=== PATIENT | male | born 1985 | race Caucasian/White ===

== ENCOUNTER 2017-08-25 20:40 | Emergency (ER) | payer SELFPAY ==
[~2017-08-25] VITALS: Ht 172.7 cm; Wt 100.0 kg
[2017-08-25] MEDS ORDERED: SODIUM CHLORIDE 0.9% 1,000 ML IV ONE (23:10)
[2017-08-25] MEDS ORDERED: ONDANSETRON HCL 4MG/2ML VIAL IV STA (23:10)
[2017-08-25] MEDS ORDERED: KETOROLAC 30MG/ML VIAL IV STA (23:10)
[2017-08-25 23:38] LABS: BASOPHILS % 0.4 % (0.0-2.0); EOSINOPHILS % 3.1 % (0.0-5.0); HEMATOCRIT. 41.5 % (42.0-52.0); HEMOGLOBIN. 14.1 g/dL (14.0-18.0); LYMPHOCYTES % 27.3 % (20.0-50.0); MEAN CORPUSCULAR HEMOGLOBIN 28.7 pg (28.0-32.0); MEAN CORPUSCULAR VOLUME 84.1 fL (80.0-94.0); MEAN PLATELET VOLUME 10.5 fl (7.4-10.4); MONOCYTES % 8.9 % (2.0-8.0); NEUTROPHILS % 60.3 % (40.0-76.0); PLATELET 235 x1000/uL (130-400); RED BLOOD CELL COUNT 4.94 mill/uL (4.7-6.1); RED CELL DISTRIBUTION WIDTH 14.2 % (11.6-14.6)
[2017-08-25 23:51] LABS: PROTHROMBIN TIME 10.4 sec (9.4-11.6)
[2017-08-25 23:52] LABS: CLARITY URINE CLEAR (CLEAR); COLOR URINE YELLOW (YELLOW); KETONES URINE TRACE (NEGATIVE); LEUKOCYTE ESTERASE URINE NEGATIVE (NEGATIVE); NITRITE URINE NEGATIVE (NEGATIVE); OCCULT BLOOD URINE NEGATIVE (NEGATIVE); PROTEIN URINE NEGATIVE (NEGATIVE); SPECIFIC GRAVITY URINE 1.032 (1.005-1.030); UROBILINOGEN URINE 0.2 E.U./dL (0.2-1.0)
[2017-08-25 23:55] LABS: CARBON DIOXIDE 28 mEq/L (21-32); CHLORIDE 105 mEq/L (98-107)
[2017-08-26 02:46] VITALS: BP 105/53
== END 2017-08-26 02:50 | disposition home or self-care (01) ==
LOC: ER 21:16
DX: H60.92 Unspecified otitis externa, left ear (principal); H60.10 Cellulitis of external ear, unspecified ear; I88.9 Nonspecific lymphadenitis, unspecified
CPT/HCPCS: 36415; 80053; 81003; 85025; 85610; 96361; 96374; 96375; 99284; J1885; J2405; J7030; Z7610

== ENCOUNTER 2019-10-14 19:56 | Emergency (ER) | payer SELFPAY ==
[~2019-10-14] VITALS: Ht 167.6 cm; Wt 71.0 kg
[2019-10-14] MEDS ORDERED: SODIUM CHLORIDE 0.9% 1,000 ML IV ONE (23:43)
[2019-10-15 00:44] LABS: CHLORIDE 105 mEq/L (98-107)
[2019-10-15 00:45] LABS: BETA HYDROXYBUTYRATE 0.2 mMol/L (0.0-0.3)
[2019-10-15 01:16] LABS: BASOPHILS % 0.6 % (0.0-2.0); EOSINOPHILS % 1.9 % (0.0-5.0); HEMATOCRIT. 41.6 % (42.0-52.0); HEMOGLOBIN. 14.5 g/dL (14.0-18.0); MEAN CORPUSCULAR HEMOGLOBIN 29.8 pg (28.0-32.0); MEAN CORPUSCULAR VOLUME 85.5 fL (80.0-94.0); MEAN PLATELET VOLUME 11.1 fl (7.4-10.4); MONOCYTES % 8.6 % (2.0-8.0); NEUTROPHILS % 58.9 % (40.0-76.0); RED CELL DISTRIBUTION WIDTH 13.8 % (11.6-14.6)
[2019-10-15 01:24] LABS: CLARITY URINE CLEAR (CLEAR); COLOR URINE YELLOW (YELLOW); KETONES URINE NEGATIVE (NEGATIVE); LEUKOCYTE ESTERASE URINE NEGATIVE (NEGATIVE); NITRITE URINE NEGATIVE (NEGATIVE); OCCULT BLOOD URINE NEGATIVE (NEGATIVE); PH URINE 7.5 (4.5-8.0); PROTEIN URINE NEGATIVE (NEGATIVE); SPECIFIC GRAVITY URINE 1.041 (1.005-1.030); UROBILINOGEN URINE 0.2 E.U./dL (0.2-1.0)
[2019-10-15 01:29] LABS: PLATELET 192 x1000/uL (130-400); RED BLOOD CELL COUNT 5.06 mill/uL (4.7-6.1)
[2019-10-15 04:24] VITALS: BP 135/80
== END 2019-10-15 04:24 | disposition home or self-care (01) ==
LOC: ER 19:56
DX: E11.65 Type 2 diabetes mellitus with hyperglycemia (principal); R07.89 Other chest pain; Z79.84 Long term (current) use of oral hypoglycemic drugs
CPT/HCPCS: 36415; 71045; 80053; 81003; 82010; 82962; 84484; 85025; 93005; 96360; 96361; 99285; J7030

== ENCOUNTER 2021-08-01 18:11 | Inpatient (IN) | payer OTHER ==
[2021-08-01] VITALS (13 sets, daily range): BP systolic 128–142; BP diastolic 76–106
[~2021-08-01] VITALS: Ht 167.6 cm; Wt 78.9 kg
[~2021-08-01 18:11] MED LIST: HEPARIN SODIUM 1,000 UNIT/1ML VIAL IV ONE; NICARDIPINE 100MCG/ML 10ML VIAL (CATH LAB) IV ONE; NITROGLYCERIN 50MCG/ML 10ML VIAL (CATH LAB) IV ONE; SODIUM CHL 0.45% + KCL 20MEQ/L 1,000 ML IV NR
[2021-08-01] MEDS ORDERED: ASPIRIN 325MG EC TABLET PO ONE (18:30)
[2021-08-01 18:43] LABS: BASOPHILS % 0.6 % (0.0-2.0); EOSINOPHILS % 1.4 % (0.0-5.0); HEMATOCRIT. 46.6 % (42.0-52.0); HEMOGLOBIN. 16.6 g/dL (14.0-18.0); LYMPHOCYTES % 25.2 % (20.0-50.0); MEAN CORPUSCULAR HEMOGLOBIN 30.5 pg (28.0-32.0); MEAN CORPUSCULAR VOLUME 85.6 fL (80.0-94.0); MEAN PLATELET VOLUME 10.8 fl (7.4-10.4); MONOCYTES % 7.7 % (2.0-8.0); NEUTROPHILS % 65.1 % (40.0-76.0); PLATELET 266 x1000/uL (130-400); RED BLOOD CELL COUNT 5.45 mill/uL (4.7-6.1); RED CELL DISTRIBUTION WIDTH 13.3 % (11.6-14.6)
[2021-08-01 18:57] LABS: INR 0.9; PARTIAL THROMBOPLASTIN TIME 28.3 sec (23.4-31.0); PROTHROMBIN TIME 9.9 sec (9.6-11.0)
[2021-08-01 19:23] LABS: CHLORIDE 103 mEq/L (98-107)
[2021-08-01] MEDS ORDERED: IOHEXOL-300 100 ML BOTTLE ONE (19:46)
[2021-08-01] MEDS ORDERED: LIDOCAINE HCL 1% 20ML VIAL (Pyxis) INJ ONE (19:46)
[2021-08-01] MEDS ORDERED: IODIXANOL 320MG/ML 100 ML BOTTLE IV ONE (19:46)
[2021-08-01] MEDS ORDERED: FENTANYL CITRATE/PF 50MCG/ML 2ML VIAL ONE (19:46)
[2021-08-01] MEDS ORDERED: MIDAZOLAM HCL 2 MG/2 ML VIAL ONE (19:47)
[2021-08-01] MEDS ORDERED: CLOPIDOGREL 75MG TABLET ONE (20:32)
[2021-08-01] MEDS ORDERED: ATROPINE SULFATE 1MG/10ML SYR IV PRN (20:45)
[2021-08-01] MEDS ORDERED: MORPHINE SULFATE 2 MG/ML CPJ (NOT FOR IM USE) IV PRN (20:45)
[2021-08-01] MEDS ORDERED: ACETAMINOPHEN 325MG TABLET PO PRN (20:45)
[2021-08-01] MEDS ORDERED: SODIUM CHL 0.45% + KCL 20MEQ/L 1,000 ML IV ONE (21:00)
[2021-08-01] MEDS ORDERED: NALOXONE HCL 0.4MG/ML VIAL IV PRN (21:00)
[2021-08-01] MEDS ORDERED: PNEUMOCOCCAL 23-VAL P-SAC VAC 0.5 ML IM ONE (23:45)
[2021-08-01] MEDS: ATORVASTATIN CALCIUM 40MG TABLET PO SCH (23:52)
[2021-08-01] MEDS: METOPROLOL TARTRATE 25MG TABLET PO SCH (23:53)
[2021-08-02] VITALS (70 sets, daily range): BP systolic 98–135; BP diastolic 51–83
[2021-08-02] MEDS ORDERED: GUAIFENESIN 200MG/10ML SUGAR FREE UDC PO PRN (00:15)
[2021-08-02] MEDS ORDERED: ACETAMINOPHEN 325MG TABLET PO PRN (00:15)
[2021-08-02] MEDS ORDERED: DOCUSATE SODIUM 100MG CAPSULE PO PRN (00:15)
[2021-08-02] MEDS ORDERED: ONDANSETRON HCL 4MG/2ML INJ IV PRN (00:15)
[2021-08-02] MEDS ORDERED: CLONIDINE 0.1MG TABLET PO PRN (00:15)
[2021-08-02] MEDS ORDERED: MAGNESIUM/ALUMINUM HYDROXIDE/SIMETHICONE 30ML UDC PO PRN (00:15)
[2021-08-02] MEDS ORDERED: HYDROCODONE/ACETAMINOPHEN 5/325MG TABLET PO PRN (00:15)
[2021-08-02] MEDS ORDERED: MORPHINE SULFATE 2 MG/ML CPJ (NOT FOR IM USE) IV PRN (00:15)
[2021-08-02] MEDS ORDERED: SODIUM CHL 0.45% + KCL 20MEQ/L 1,000 ML IV NR (01:00)
[2021-08-02 06:10] LABS: BASOPHILS % 0.4 % (0.0-2.0); EOSINOPHILS % 1.1 % (0.0-5.0); HEMATOCRIT. 43.8 % (42.0-52.0); HEMOGLOBIN. 14.9 g/dL (14.0-18.0); LYMPHOCYTES % 24.1 % (20.0-50.0); MEAN CORPUSCULAR HEMOGLOBIN 29.2 pg (28.0-32.0); MEAN CORPUSCULAR VOLUME 85.9 fL (80.0-94.0); MEAN PLATELET VOLUME 10.9 fl (7.4-10.4); MONOCYTES % 9.1 % (2.0-8.0); NEUTROPHILS % 65.3 % (40.0-76.0); PLATELET 227 x1000/uL (130-400); RED CELL DISTRIBUTION WIDTH 13.4 % (11.6-14.6)
[2021-08-02 06:20] LABS: CHLORIDE 106 mEq/L (98-107)
[2021-08-02] MEDS: LISINOPRIL 5MG TABLET PO SCH (08:31)
[2021-08-02] MEDS: ASPIRIN 81MG EC TABLET PO SCH (08:32)
[2021-08-02] MEDS: CLOPIDOGREL 75MG TABLET PO SCH (08:32)
[2021-08-02] MEDS: METOPROLOL TARTRATE 25MG TABLET PO SCH ×2 (09:00→21:03)
[2021-08-02] MEDS ORDERED: DEXTROSE 50% WATER 50ML SYRINGE IV PRN (12:00)
[2021-08-02] MEDS: BLOOD SUGAR DIAGNOSTIC STRIP TEST SCH ×3 (12:01→21:03)
[2021-08-02] MEDS: INSULIN LISPRO 100 UNITS/ML SUBCUT SCH ×3 (12:16→21:00)
[2021-08-02] MEDS ORDERED: INFLUENZA VACCINE 05/PF 0.5 ML SYRINGE IM ONE (20:00)
[2021-08-02] MEDS: ATORVASTATIN CALCIUM 40MG TABLET PO SCH (21:03)
[2021-08-03] VITALS: BP 113/62
[2021-08-03 04:00] VITALS: BP 118/65
[2021-08-03] MEDS: BLOOD SUGAR DIAGNOSTIC STRIP TEST SCH ×2 (06:22→12:20)
[2021-08-03 07:19] LABS: CHLORIDE 106 mEq/L (98-107)
[2021-08-03 07:25] LABS: LDL CHOLESTEROL 84 mg/dL (5-100)
[2021-08-03 07:26] LABS: HDL CHOLESTEROL 30 mg/dL (40-59)
[2021-08-03] MEDS: INSULIN LISPRO 100 UNITS/ML SUBCUT SCH ×2 (07:50→12:50)
[2021-08-03 08:25] VITALS: BP 110/75
[2021-08-03] MEDS: METOPROLOL TARTRATE 25MG TABLET PO SCH (09:05)
[2021-08-03] MEDS: ASPIRIN 81MG EC TABLET PO SCH (09:05)
[2021-08-03] MEDS: CLOPIDOGREL 75MG TABLET PO SCH (09:06)
[2021-08-03] MEDS: LISINOPRIL 5MG TABLET PO SCH (09:06)
[2021-08-03 12:13] VITALS: BP 119/80
[2021-08-03 13:06] VITALS: BP 119/80
[2021-08-03] MEDS ORDERED: ATORVASTATIN CALCIUM 40MG TABLET PO SCH (21:00)
== END 2021-08-04 10:19 | disposition home or self-care (01) | DRG 247 ==
LOC: ER 18:11 → CVICU 19:26 → EDBEDREQ 19:27 → EDBEDREQTM 19:27 → 6WST 08-02 18:05 → ENPENDDIS 08-03 13:45
PROVIDERS: ADMIT Hospitalist; ATTEND Internal Medicine Cardiovascular Disease
PROC: 027035Z Dilation of Coronary Artery, One Artery with Two Drug-eluting Intraluminal Devices, Percutaneous Approach (ICD-10-PCS; principal; 2021-08-01)
PROC: 4A023N7 Measurement of Cardiac Sampling and Pressure, Left Heart, Percutaneous Approach (ICD-10-PCS; 2021-08-01)
PROC: B2111ZZ Fluoroscopy of Multiple Coronary Arteries using Low Osmolar Contrast (ICD-10-PCS; 2021-08-01)
PROC: B2151ZZ Fluoroscopy of Left Heart using Low Osmolar Contrast (ICD-10-PCS; 2021-08-01)
DX: I21.19 ST elevation (STEMI) myocardial infarction involving other coronary artery of inferior wall (principal); E78.5 Hyperlipidemia, unspecified; I10 Essential (primary) hypertension; Z20.822 Contact with and (suspected) exposure to COVID-19; I25.10 Atherosclerotic heart disease of native coronary artery without angina pectoris; F17.210 Nicotine dependence, cigarettes, uncomplicated; Z82.49 Family history of ischemic heart disease and other diseases of the circulatory system; E11.65 Type 2 diabetes mellitus with hyperglycemia
CPT/HCPCS: 36415; 71045; 80048; 80053; 80061; 82962; 83036; 83880; 84484; 85025; 85347; 86850; 86900; 87426; 90686; 90732; 93005; 93306; 99291; J1644; J1815; J2250; J3010; J3480; J3490; Q9967

== ENCOUNTER 2021-08-16 20:51 | Emergency (ER) | payer OTHER ==
[~2021-08-16] VITALS: Ht 172.7 cm; Wt 86.0 kg
[2021-08-16 22:25] VITALS: BP 124/80
[2021-08-16] MEDS ORDERED: OXYM30SP26 BOTHNSTRLS (23:05)
== END 2021-08-17 00:01 | disposition home or self-care (01) ==
LOC: ER 20:51
DX: R04.0 Epistaxis (principal); I10 Essential (primary) hypertension; I25.10 Atherosclerotic heart disease of native coronary artery without angina pectoris; E11.9 Type 2 diabetes mellitus without complications
CPT/HCPCS: 99282